=== PATIENT | female | born 1965 | race Caucasian/White ===

== ENCOUNTER 2017-12-12 08:13 | Inpatient (IN) | payer MEDICAID ==
[~2017-12-12] VITALS: Ht 172.7 cm; Wt 175.1 kg
[~2017-12-12 08:13] MED LIST: AMOX-362 PO; DICY-42 PO; HYDR12.556 PO; LEVO50TA86 PO; ONDA4TAB97 PO; OXYC-865 PO
--- NOTE | 2017-12-12 08:15 | ER Report ---
History and Physical Time Seen By MD: 08:14 HPI/ROS CHIEF COMPLAINT: Dyspnea HISTORY OF PRESENT ILLNESS:SOB; hx of pneumonia in past, currently not on any anticoagulation; recently also diagnosed as a diabetic; Wears 2 L NC O2 at night. Patient states that her shortness of breath began yesterday. She has been increasing her O2 off throughout the day and has been giving herself nebulizer treatments at home which do help for a short duration but then she feels short of breath again. Patient reports having subjective fevers at home. She states she feels worse than she did when she presented in February 2017 when she was ultimately diagnosed with pneumonia. Patient denies any chest pain or pressure but reports shortness of breath. She denies headache. She denies any abdominal pain. She denies dysuria or flank pain. REVIEW OF SYSTEMS: Constitutional: Subjective fevers no chills Eyes: No discharge. ENT: Reports sore throat Cardiovascular: No chest pain, no palpitations. Respiratory: Reports a dry cough and shortness of breath Gastrointestinal: No abdominal pain, no vomiting. Genitourinary: No hematuria. Musculoskeletal: No back pain. Skin: No rashes. Neurological: No headache. Allergies: Coded Allergies: No Known Drug Allergies (Unverified , 12/12/17) Home Meds Reported Medications Aspirin (ASPIRIN) 81 Mg Tab.chew, 81 MG PO QDAY, TAB.CHEW 12/12/17 Levothyroxine Sodium (LEVOTHYROXINE SODIUM) 75 Mcg Tablet, 75 MCG PO QDAY, TAB 12/12/17 Metoprolol Tartrate (METOPROLOL TARTRATE) 25 Mg Tablet, 2 TAB PO BID, TAB 12/12/17 Metformin Hcl (METFORMIN HCL) 1,000 Mg Tablet, 1 TAB PO BID, TAB 12/12/17 Furosemide (LASIX) 80 Mg Tablet, PO DAILY, TAB 12/12/17 Discontinued Reported Medications Hydrochlorothiazide (HYDROCHLOROTHIAZIDE) 12.5 Mg Capsule, 1 TAB PO QDAY, CAPSULE 02/18/17 Oxycodone Hcl/Acetaminophen (PERCOCET 5-325 MG TABLET) 1 Each Tablet, 1 EACH PO Q6H Y for PAIN, TAB 02/18/17 Amoxicillin (AMOXICILLIN) 500 Mg Capsule, 1 CAP PO Q8H, #15 CAPSULE 02/18/17 Levothyroxine Sodium (LEVOTHYROXINE SODIUM) 50 Mcg Tablet, 50 MCG PO QDAY, TAB 02/18/17 Discontinued Scripts Dicyclomine Hcl (BENTYL) 10 Mg Capsule, 20 MG PO QID, #20 CAPSULE 0 Refills Prov:NICCI ZHOU MD 02/18/17 Ondansetron Hcl (ZOFRAN) 4 Mg Tablet, 4 MG PO Q8H for Nausea, #15 TAB 0 Refills Prov:NICCI ZHOU MD 02/18/17 Past Medical/Surgical History Hx of PE 02/2017 Hx Substance Use Disorder: No Constitutional Vital Sign - Last 24 Hours 12/12/17 12/12/17 12/12/17 12/12/17 08:27 08:36 09:00 09:54 Temp 99.5 Pulse 107 101 105 Resp 24 22 20 B/P (MAP) 146/89 Pulse Ox 48 O2 Delivery Room Air O2 Flow Rate 6.0 12/12/17 09:54 Pulse Ox 90 O2 Delivery Nasal Cannula O2 Flow Rate 5.0 Physical Exam General/Constitutional: Patient is awake, alert, some peripheral cyanosis, initial O2 saturation on room air was 48% High BMI Head: Normocephalic and atraumatic. Eyes: Conjunctival clear, Pupils are equal and reactive to light. Extraocular muscles are intact and symmetrical. Sclera are clear and anicteric. Ears:External canals are clear. Tympanic membranes are clear with normal landmarks and light reflex. Nares: No rhinorrhea or bleeding. Turbinates are pink and moist. Oropharyngeal: Uterus membranes are moist. There is pharyngeal erythema without exudate. Neck: Supple, no adenopathy. Cardiovascular: Heart is tachycardic but regular rhythm Pulmonary: Lungs are noted for diminished breath sounds bilaterally with wheezing with cough. Abdomen: Soft, protuberant nontender, no guarding or peritoneal signs. Extremities: No gross deformities, No peripheral cyanosis. Able to move all 4 extremities. Neuro: Alert and oriented X3, Skin: Patient initially with peripheral cyanosis which responded to O2 therapy. No rashes noted Medical Decision Making Data Points Result Diagram: 12/12/17 0835 12/12/17 0835 Laboratory Hematology Test 12/12/17 08:35 Red Blood Count 5.13 M/uL (4.17-5.56) Mean Corpuscular Volume 90.0 fL (80.0-96.0) Mean Corpuscular Hemoglobin 29.2 pg (26.0-33.0) Mean Corpuscular Hemoglobin Concent 32.4 g/dL (32.0-36.0) Red Cell Distribution Width 17.2 % (11.5-14.5) Mean Platelet Volume 7.1 fL (7.2-11.1) Neutrophils (%) (Auto) 87.3 % (39.4-72.5) Lymphocytes (%) (Auto) 3.4 % (17.6-49.6) Monocytes (%) (Auto) 8.1 % (4.1-12.4) Eosinophils (%) (Auto) 0.7 % (0.4-6.7) Basophils (%) (Auto) 0.5 % (0.3-1.4) Nucleated RBC Relative Count (auto) 0.1 /100WBC Neutrophils # (Auto) 16.8 K/uL (2.0-7.4) Lymphocytes # (Auto) 0.6 K/uL (1.3-3.6) Monocytes # (Auto) 1.6 K/uL (0.3-1.0) Eosinophils # (Auto) 0.1 K/uL (0.0-0.5) Basophils # (Auto) 0.1 K/uL (0.0-0.1) Nucleated RBC Absolute Count (auto) 0.01 K/uL Peripheral Blood Smear Yes Y/N Prothrombin Time 13.9 seconds (12.0-14.4) Prothromb Time International Ratio 1.06 Activated Partial Thromboplast Time 27 seconds (23-35) Sodium Level 142 mmol/L (137-145) Potassium Level 3.7 mmol/L (3.5-5.0) Chloride Level 98 mmol/L (98-107) Carbon Dioxide Level 31 mmol/L (22-31) Blood Urea Nitrogen 11 mg/dl (7-18) Creatinine 0.80 mg/dl (0.52-1.04) Glomerular Filtration Rate Calc > 60.0 Random Glucose 142 mg/dl (75-110) Lactate 1.7 mmol/L (0.7-2.1) Calcium Level 8.7 mg/dl (8.4-10.2) Total Bilirubin 0.6 mg/dl (0.2-1.3) Aspartate Amino Transf (AST/SGOT) 19 U/L (0-35) Alanine Aminotransferase (ALT/SGPT) 19 U/L (0-56) Alkaline Phosphatase 135 U/L (0-126) Troponin I < 0.012 ng/ml B-Type Natriuretic Peptide 538 pg/ml (0-100) Total Protein 7.5 gm/dl (6.3-8.2) Albumin 3.7 g/dl (3.5-5.0) Thyroid Stimulating Hormone (TSH) 4.41 uIU/ml (0.46-4.68) Chemistry Test 12/12/17 08:35 White Blood Count 19.2 k/uL (4.5-11.0) Red Blood Count 5.13 M/uL (4.17-5.56) Hemoglobin 15.0 g/dL (12.0-16.0) Hematocrit 46.2 % (34.0-47.0) Mean Corpuscular Volume 90.0 fL (80.0-96.0) Mean Corpuscular Hemoglobin 29.2 pg (26.0-33.0) Mean Corpuscular Hemoglobin Concent 32.4 g/dL (32.0-36.0) Red Cell Distribution Width 17.2 % (11.5-14.5) Platelet Count 353 K/uL (150-450) Mean Platelet Volume 7.1 fL (7.2-11.1) Neutrophils (%) (Auto) 87.3 % (39.4-72.5) Lymphocytes (%) (Auto) 3.4 % (17.6-49.6) Monocytes (%) (Auto) 8.1 % (4.1-12.4) Eosinophils (%) (Auto) 0.7 % (0.4-6.7) Basophils (%) (Auto) 0.5 % (0.3-1.4) Nucleated RBC Relative Count (auto) 0.1 /100WBC Neutrophils # (Auto) 16.8 K/uL (2.0-7.4) Lymphocytes # (Auto) 0.6 K/uL (1.3-3.6) Monocytes # (Auto) 1.6 K/uL (0.3-1.0) Eosinophils # (Auto) 0.1 K/uL (0.0-0.5) Basophils # (Auto) 0.1 K/uL (0.0-0.1) Nucleated RBC Absolute Count (auto) 0.01 K/uL Peripheral Blood Smear Yes Y/N Prothrombin Time 13.9 seconds (12.0-14.4) Prothromb Time International Ratio 1.06 Activated Partial Thromboplast Time 27 seconds (23-35) Glomerular Filtration Rate Calc > 60.0 Lactate 1.7 mmol/L (0.7-2.1) Calcium Level 8.7 mg/dl (8.4-10.2) Total Bilirubin 0.6 mg/dl (0.2-1.3) Aspartate Amino Transf (AST/SGOT) 19 U/L (0-35) Alanine Aminotransferase (ALT/SGPT) 19 U/L (0-56) Alkaline Phosphatase 135 U/L (0-126) Troponin I < 0.012 ng/ml B-Type Natriuretic Peptide 538 pg/ml (0-100) Total Protein 7.5 gm/dl (6.3-8.2) Albumin 3.7 g/dl (3.5-5.0) Thyroid Stimulating Hormone (TSH) 4.41 uIU/ml (0.46-4.68) Coagulation Test 12/12/17 08:35 Prothrombin Time 13.9 seconds Prothromb Time International Ratio 1.06 Activated Partial Thromboplast Time 27 seconds Microbiology Microbiology Date/Time Source Procedure Growth Status 12/12/17 09:35 Blood Peripheral Draw Blood Culture - Preliminary NO GROWTH SO FAR, SET LATE. REINCUBATED Resulted 12/12/17 09:22 Blood Peripheral Draw Blood Culture - Preliminary NO GROWTH SO FAR, SET LATE. REINCUBATED Resulted EKG/Imaging EKG Interpretation EKG today shows sinus tachycardia with ventricular rate of 105 bpm. There is a right axis deviation. This was compared to EKG from February 2017 which showed sinus rhythm with a ventricular rate of 75 bpm. Monitor Interpretation: Sinus Tachycardia ED Course/Re-evaluation Clinical Indication for ER IV: IV Access ED Course 12/12/2017 8:47:10 am After history and physical exam was performed differential diagnosis was formulated which includes but is not limited to acute coronary syndrome, acute myocardial infarction, pulmonary embolism, pneumonia, pneumonitis. Plan at this time will be to perform cardiac workup along with CT angiogram of the chest to rule out pulmonary embolism. We will give the patient a breathing treatment for bronchospasm. Patient will most likely require admission. 12/12/2017 9:48:26 am patient received hour-long breathing treatment. Patient subjectively feels no significant improvement. Reevaluation of lung exam still reveals decreased breath sounds bilaterally with scattered wheezes with cough. No objective improvement noted Decision to Disposition Date: Dec 12, 2017 Decision to Disposition Time: 11:08 Depart Departure Latest Vital Signs Vital Signs Date Time Temp Pulse Resp B/P (MAP) Pulse Ox O2 Delivery O2 Flow Rate FiO2 12/12/17 09:54 90 Nasal Cannula 5.0 12/12/17 09:54 105 20 12/12/17 08:27 99.5 146/89 Impression: Primary Impression: Pneumonia Condition: Improved Disposition: Admitted from ER (to dr ingram) Problem Qualifiers Primary Impression: Pneumonia Pneumonia type: due to unspecified organism Laterality: bilateral Lung location: unspecified part of lung Qualified Codes: J18.9 - Pneumonia, unspecified organism NICCI ZHOU MD Dec 12, 2017 08:15
[2017-12-12] MEDS ORDERED: ASPIRIN 81 MG CHEW PO ONE (08:20)
[2017-12-12] MEDS ORDERED: METF-420 PO (08:25)
[2017-12-12] MEDS ORDERED: FURO80TA10 PO (08:25)
[2017-12-12] MEDS ORDERED: METO25TA93 PO (08:26)
[2017-12-12] MEDS ORDERED: LEVO75TA73 PO (08:27)
[2017-12-12] MEDS ORDERED: ASPI81TA94 PO (08:33)
[2017-12-12] MEDS ORDERED: IPRATROPIUM 0.5MG/2.5ML NEB NEB ONE (08:40)
[2017-12-12] MEDS ORDERED: ALBUTEROL 2.5 MG/0.5ML ER ONLY NEB ONE (08:40)
[2017-12-12 08:48] LABS: PLATELET COUNT, AUTOMATED 353 K/uL (150-450)
[2017-12-12 08:53] LABS: INR 1.06
[2017-12-12] MEDS ORDERED: IOPAMIDOL 76% 75 ML INFUS BTL 0 ML ONE (09:13)
--- NOTE | 2017-12-12 09:18 | EKG ---
FACILITY: [facility] PATIENT NAME: SHAYNA LANGLEY : [id number] MR: [id number] V: [id number] EXAM DATE: ORDERING PHYSICIAN: NICCI ZHOU TECHNOLOGIST: Test Reason : Blood Pressure : / mmHG Vent. Rate : 105 BPM Atrial Rate : 105 BPM P-R Int : 152 ms QRS Dur : 080 ms QT Int : 346 ms P-R-T Axes : 073 122 074 degrees QTc Int : 457 ms Sinus tachycardia Right axis deviation Abnormal ECG When compared with ECG of 21-FEB-2017 08:40, Nonspecific T wave abnormality no longer evident in Anterior leads Confirmed by ERIN ESTEVEZ ([id number]) on 12/12/2017 12:31:27 PM Referred By: Confirmed By:ERIN ESTEVEZ
[2017-12-12] MEDS ORDERED: IOPAMIDOL 76% 100 ML INFUS BTL 100 ML ONE (10:15)
--- NOTE | 2017-12-12 10:37 | RADIOLOGY IMAGING REPORT ---
FACILITY: [facility] [place] PATIENT NAME: Valentina Eduardo : 1965 MR: [id number] V: [id number] EXAM DATE: ORDERING PHYSICIAN: NICCI ZHOU TECHNOLOGIST: Location: [facility] [place] Patient: Valentina Eduardo : 1965 Visit/Account:[id number] Date of Sevice: 12/12/2017 CTA CHEST WW/O CNTR (PULM ANG) HISTORY: hypoxia ADDITIONAL HISTORY: None. TECHNIQUE: CTA chest with intravenous contrast. Axial imaging acquired following administration of IV contrast timed for maximum opacification of the pulmonary arterial vasculature. Slab 3-D MIP jose nstructed images were also created for further evaluation and interpretation. Reconstruction of the [facility] data set includes multiplanar 2-D in the sagittal and coronal planes and 3-D reconstructed yudith nal slab MIP series. 3-D images were created by the technologist. Dose Lowering Technique One of the following dose optimization techniques was utilized in the performance of this exam: Autom ated exposure control; adjustment of the mA and/or kV according to the patient's size; or use of an i terative reconstruction technique. Specific details can be referenced in the facility's radiology C T exam operational policy. The study is limited due to patient's large body habitus. CONTRAST: 75 mL Isovue-370 COMPARISON: CT abdomen pelvis February 18, 2017 FINDINGS: Lungs/pleura: There are multiple patchy nodular areas of airspace consolidation seen throughout the lungs, most prominent in the left lower lobe.. No evidence of pleural effusions. There Is a partial ly calcified 6 mm nodule in the anterior right upper lobe best seen on image 18 of series 5. Heart/vessels: The pulmonary arterial tree is not ideally visualized distally in part related to myers ited contrast bolus into the distal pulmonary arteries and due to the patient's very large body habit us producing numerous artifacts.. No large central pulmonary emboli are identified Mediastinum/lymph nodes: There are several mildly prominent AP window lymph nodes. Stiff Leg Derrick Operator l ymph node measures 1.4 x 1.1 cm. There are prominent right hilar lymph nodes. A malt liquors sales representative lymp h node measures 3 x 2.1 cm. Several mildly prominent or tracheal lymph nodes a malt liquors sales representative lymph node measures 1.8 x 1.3 cm Visualized upper abdomen: Negative. Bones/soft tissues: Morbid obesity Additional findings: None IMPRESSION: There are multiple patchy nodular areas of airspace consolidation throughout the lungs, most prominen t in the left lower lobe. Appearance is suggestive of multifocal pneumonia although continued follow -up recommended to assure clearing. 6 mm calcified nodule right upper lobe No evidence of large central pulmonary arterial emboli however the peripheral pulmonary arterial tree is not ideally visualized due to a combination of patient's very large body habitus and limited cont rast bolus into the distal pulmonary arteries.. Mildly prominent right hilar mediastinal adenopathy. This could be reactive although again short-ter m interval follow-up recommended. Report Dictated By: Joseline Rasmussen MD at 12/12/2017 10:19 AM Report E-Signed By: Joseline Rasmussen MD at 12/12/2017 10:32 AM WSN:[email or web address]
[2017-12-12] MEDS ORDERED: cefTRIAXone 1 GM VIAL IVP ONE (10:45)
[2017-12-12] MEDS ORDERED: AZITHROMYCIN(*) 500 MG 500 MG in NS(*) 0.9% 250 ML BAG 250 ML IVPB ONE (10:45)
[2017-12-12] MEDS ORDERED: AZITHROMYCIN(*) 500 MG 500 MG ONE (10:53)
[2017-12-12 11:51] VITALS: BP 129/81
--- NOTE | 2017-12-12 12:07 | History & Physical ---
History of Present Illness Chief Complaint Shortness of breath and cough History of Present Illness She presented with shortness of breath and cough which began yesterday. She did have elevated WBC and CTA done showed pneumonia throughout. She was started on Rocephin and Azithromycin in the emergency department. She normally wears 2L oxygen at night, but now has required 8L this morning. She has a past medical history of hypertension, hypothyroidism, and diabetes. History Problems: (1) Diabetes Status: Chronic (2) Hypertension Status: Chronic (3) Hypothyroidism Status: Chronic Home Meds Reported Medications Furosemide (FUROSEMIDE) 40 Mg Tablet, 1 TAB PO DAILY, TAB 12/12/17 Aspirin (ASPIRIN) 81 Mg Tab.chew, 81 MG PO QDAY, TAB.CHEW 12/12/17 Levothyroxine Sodium (LEVOTHYROXINE SODIUM) 75 Mcg Tablet, 75 MCG PO QDAY, TAB 12/12/17 Metoprolol Tartrate (METOPROLOL TARTRATE) 25 Mg Tablet, 1 TAB PO BID, TAB 12/12/17 Metformin Hcl (METFORMIN HCL) 1,000 Mg Tablet, 1 TAB PO BID, TAB 12/12/17 Discontinued Reported Medications Furosemide (LASIX) 80 Mg Tablet, PO DAILY, TAB 12/12/17 Hydrochlorothiazide (HYDROCHLOROTHIAZIDE) 12.5 Mg Capsule, 1 TAB PO QDAY, CAPSULE 02/18/17 Oxycodone Hcl/Acetaminophen (PERCOCET 5-325 MG TABLET) 1 Each Tablet, 1 EACH PO Q6H Y for PAIN, TAB 02/18/17 Amoxicillin (AMOXICILLIN) 500 Mg Capsule, 1 CAP PO Q8H, #15 CAPSULE 02/18/17 Levothyroxine Sodium (LEVOTHYROXINE SODIUM) 50 Mcg Tablet, 50 MCG PO QDAY, TAB 02/18/17 Discontinued Scripts Dicyclomine Hcl (BENTYL) 10 Mg Capsule, 20 MG PO QID, #20 CAPSULE 0 Refills Prov:NICCI ZHOU MD 02/18/17 Ondansetron Hcl (ZOFRAN) 4 Mg Tablet, 4 MG PO Q8H for Nausea, #15 TAB 0 Refills Prov:NICCI ZHOU MD 02/18/17 Allergies: Coded Allergies: No Known Drug Allergies (Unverified , 12/12/17) Patient History: FH: HTN (hypertension) FATHER, MOTHER, FH: dementia MOTHER, FH: diabetes mellitus MOTHER, High cholesterol BROTHER OR SISTER Hx Substance Use Disorder: No Review of Systems All Systems Reviewed/Normal: Yes, Except as Noted Respiratory: Shortness of Breath, Cough, Wheezing Gastrointestinal: Nausea, Vomiting Exam Vital Signs Vital Signs Date Time Temp Pulse Resp B/P (MAP) Pulse Ox O2 Delivery O2 Flow Rate FiO2 12/12/17 11:51 98.6 88 22 129/81 (97) 96 Nasal Cannula 6.0 General Appearance: Alert, Awake, No Acute Distress, Afebrile Neuro: No Gross deficits Cardiovascular: Regular Rate and Rhythm Respiratory: No Respiratory Distress, Other (diminished throughout, upper airway expiratory wheezes noted) GI: Abd Soft and Non-Tender Extremities: Edema (+2 pitting edema to lower extrmeities ) Psych: Alert & Oriented X3, Appropriate Mood & Affect Medical Decision Making Data Points Result Diagram: 12/12/17 0835 12/12/17 0835 blood cultures drawn in ER Assessment and Plan Problems: (1) Pneumonia Status: Acute Assessment & Plan: She was admitted with elevated WBC and multifocal pneumonia throughout bilateral lung parrish. She will be placed on Azithromycin and Rocephin. She will be given nebulizers, oxygen and flutter therapy. Blood cultures were drawn today in the ER. (2) Diabetes Status: Chronic Assessment & Plan: She is on chronic treatment with Metformin. She had contrast for CTA today, so we will hold Metformin. She will be given Insulin SS #2 and will get AC and HS blood sugars. (3) Hypothyroidism Status: Chronic Assessment & Plan: She is on chronic treatment with Levothyroxine. (4) Hypertension Status: Chronic Assessment & Plan: She is on chronic treatment with Lasix and Metoprolol. Venous Thromboembolism Antithrombotics Is Pt On Any Antithrombotics?: Yes Exam Sepsis Risk: Sepsis Risk Problem Qualifiers (1) Pneumonia: Pneumonia type: due to unspecified organism Laterality: bilateral Lung location: unspecified part of lung Qualified Codes: J18.9 - Pneumonia, unspecified organism DEREK MONTES SCIENTIFIC SOFTWARE DEVELOPER Dec 12, 2017 12:07
[2017-12-12] MEDS ORDERED: FURO-47 PO (12:38)
[2017-12-12] MEDS: ACETAMINOPHEN 500 MG TAB PO PRN ×2 (13:25→21:34)
[2017-12-12] MEDS: ALBUTEROL 2.5 MG/3 ML NEB NEB PRN ×4 (13:31→23:37)
[2017-12-12 14:58] VITALS: BP 117/75
[2017-12-12 20:04] VITALS: BP 130/82
[2017-12-12] MEDS: metFORMIN HCL 500 MG TAB PO SCH ×2 (21:00→21:08)
[2017-12-12] MEDS: METOPROLOL TART 50 MG TAB PO SCH (21:07)
[2017-12-12 23:12] VITALS: BP 127/82
[2017-12-13] MEDS: ALBUTEROL 2.5 MG/3 ML NEB NEB PRN ×2 (02:55→07:18)
[2017-12-13 03:31] VITALS: BP 104/63
[2017-12-13 06:07] LABS: PLATELET COUNT, AUTOMATED 322 K/uL (150-450)
[2017-12-13] MEDS: LEVOTHYROXINE SOD 0.075 MG TAB PO SCH (06:28)
[2017-12-13 07:03] VITALS: BP 124/66
[2017-12-13] MEDS ORDERED: ALBUTEROL 2.5 MG/3 ML NEB NEB PRN (07:40)
[2017-12-13] MEDS: ACETAMINOPHEN 500 MG TAB PO PRN ×2 (07:46→22:23)
[2017-12-13] MEDS: metFORMIN HCL 500 MG TAB PO SCH (09:00)
[2017-12-13] MEDS ORDERED: NS(*) 0.9% 250 ML BAG 250 ML ONE (09:14)
[2017-12-13] MEDS: METOPROLOL TART 50 MG TAB PO SCH ×2 (09:27→21:06)
[2017-12-13] MEDS: FUROSEMIDE 40 MG TAB PO SCH (09:27)
[2017-12-13] MEDS: AZITHROMYCIN(*) 500 MG 500 MG in NS(*) 0.9% 250 ML BAG 250 ML IVPB SCH (09:28)
[2017-12-13] MEDS: methylPREDNIS SUCC 125 MG/2ML IVP SCH ×2 (09:28→16:24)
[2017-12-13] MEDS: ENOXAPARIN 40 MG/0.4ML SYR SC SCH (09:30)
[2017-12-13 09:41] VITALS: Ht 172.7 cm; Wt 175.1 kg
[2017-12-13] MEDS: ALBUTEROL 2.5 MG/3 ML NEB NEB SCH ×4 (10:29→21:12)
[2017-12-13] MEDS: cefTRIAXone(*) 2 GM VIAL 2 GM in NS(*) 0.9% 100 ML ADDVANT BAG 100 ML IVPB SCH (10:49)
--- NOTE | 2017-12-13 12:34 | Hospitalist Progress Note ---
Subjective Progress Notes Subjective She states she is feeling a little better than she did yesterday. She is still requiring 10L of oxygen. Patient Complains of: Cardiovascular: No: Chest Pain Respiratory: Cough, Shortness of Breath, Wheezing Physical Exam Vital Signs Date Time Temp Pulse Resp B/P (MAP) Pulse Ox O2 Delivery O2 Flow Rate FiO2 12/13/17 11:38 78 12/13/17 10:37 71 20 12/13/17 10:30 High-Flow Nasal Cannula 10.0 12/13/17 07:03 98.4 124/66 (85) 12/13/17 05:40 65.0 Intake and Output 12/14/17 07:00 Intake Total 850 ml Balance 850 ml Intake Oral 500 ml IV Total 350 ml # Voids 1 General Appearance: Alert, Awake, No Acute Distress, Afebrile Neuro: No Gross deficits Cardiovascular: Regular Rate and Rhythm Respiratory: No Respiratory Distress, Other (expiratory wheezes throughout) Extremities: Edema (+2 pitting edema) Psych: Alert & Oriented X3, Appropriate Mood & Affect Result Diagram: 12/13/17 0535 12/13/17 0535 Monitor Interpretation: Sinus Tachycardia Assessment and Plan Problems: (1) Pneumonia Status: Acute Assessment & Plan: She was admitted with elevated WBC and multifocal pneumonia throughout bilateral lung parrish. She will be placed on Azithromycin and Rocephin. She will be given nebulizers, oxygen and flutter therapy. She was placed on BIPAP last night. Blood cultures were drawn in the ER 12/12 and show no growth at this time. She will get echocardiogram done today to rule out heart failure, since she does have pitting edema to to lower extremities also. (2) Diabetes Status: Chronic Assessment & Plan: She is on chronic treatment with Metformin. She had contrast for CTA 12/12, so we will hold Metformin. She will be given Insulin SS # 2 and will get AC and HS blood sugars. (3) Hypothyroidism Status: Chronic Assessment & Plan: She is on chronic treatment with Levothyroxine. (4) Hypertension Status: Chronic Assessment & Plan: She is on chronic treatment with Lasix and Metoprolol. She does not take Potassium supplement with Lasix. She states she usually increases potassium in her diet. Will continue to monitor Potassium. Exam Sepsis Risk: No Definite Risk Problem Qualifiers (1) Pneumonia: Pneumonia type: due to unspecified organism Laterality: bilateral Lung location: unspecified part of lung Qualified Codes: J18.9 - Pneumonia, unspecified organism DEREK MONTES GAUGE INSPECTOR Dec 13, 2017 12:34
--- NOTE | 2017-12-13 13:22 | Medical Nutrition Therapy ---
Nutrition Anthropometrics Height (Inches): 68.00 Height (Calculated Centimeters: 172.776727 Weight (Pounds): 386 Weight (Calculated Kilograms): 175.087 BMI Calculated: 58.68 Tone Nutrition Score: Adequate Tone Nutrition Risk Score: 20 Dietary Referral Nutrition Risk Factors: Nutrition Risk Comment: Physical Findings Physical Appearance: Morbidly Obese 40+ Skin Appearance Skin Appearance: Edema Edema Location Modifier: Both Edema Location: Lower Extremity Type of Edema: Degree of Edema: 2+ Gastrointestinal Symptoms GI Symtoms: Appetite Changes Tube Present: Bowel Sounds: Recent Bowel Pattern: Stool Characteristics: Nutrition/Food History Good Breakfast: banana with yogurt Lunch: vegetables Dinner: some protein and vegetables Nutritional Diagnosis Nutritional Risk Acuity 3: Morbid Obesity Nutritional Risk Acuity 4: Good Appetite Past Medical History: T2DM, HTN, hypothyroidism Nutritional Acuity: 3-Mild Energy Requirement: 2626 (kcal/da (15 kcal/kg)) Protein Requirement: 64 (g/day (1.0 g/kg of IBW)) Fluid Requirement: 3500 (mL/day (20 mL/kg)) Diet Type: Diabetic Nutrition Intervention: Cont diet as ordered, Encourage intake Drug: Diuretics Optional Order Time?: No Nutritional Education Nutrition Education Topic: Diabetic Nutrition Learning Readiness: Interested Teaching Methods: Discussion, Handout Response to Teaching: Verbalize understanding Teaching Recipient: Patient Nutrition Counseling: Picker Tender provided pt with diabetic nutrition therapy. Picker Tender reviewed with pt which foods have carbohydrates and which foods do not contain carbohydrates. Picker Tender reviewed typical day and meals with pt, identifying which foods within the day contain protein, fats and carbohydrates. Picker Tender encouraged pt to consume protein more frequently with carbohydrates to slow absorption and digestion of carbs. Pt reported understanding and could recall foods that contain carbohydrates and foods that do not contain carbohydrates. Nutrition Monitoring & Eval Nutrition Goals: Eat 50-100% Meal Nutrition Follow-Up: Good Intake RD Patient Assessment Time: [address] Assessment Type: RD Assessment Patient Nutrition Acuity: 3-Mild Follow Up Date: December 18, 2017 Nutritional Comment: 12/13 Pt admitted for pneumonia. Pt on a diabetic diet order and has consumed 100% x 2 meals since admit. Pt has no abnormal nutritionally relevant labs at this time. Picker Tender provided pt with Diabetic diet education. Pt reported verbalized understainding. Pt reports that she has recieved some nutrition diet education in the past and is preparing for weight loss surgery in May. Monitor intake and progress. KIKI CROWLEY Dec 13, 2017 12:55
[2017-12-13 15:44] VITALS: BP 129/88
[2017-12-13] MEDS: INSULIN HUM LISPRO 100 UN/ML 3 ML VIAL SUBQ PRN ×2 (16:25→21:07)
[2017-12-13 19:14] VITALS: BP 128/69
[2017-12-14 00:12] VITALS: BP 117/70
[2017-12-14] MEDS: methylPREDNIS SUCC 125 MG/2ML IVP SCH ×3 (00:25→16:13)
[2017-12-14] MEDS: ALBUTEROL 2.5 MG/3 ML NEB NEB SCH ×6 (01:09→21:03)
[2017-12-14 03:25] VITALS: BP 123/82
[2017-12-14] MEDS: LEVOTHYROXINE SOD 0.075 MG TAB PO SCH (05:39)
[2017-12-14 07:05] VITALS: BP 124/71
[2017-12-14 07:12] LABS: PLATELET COUNT, AUTOMATED 369 K/uL (150-450)
[2017-12-14] MEDS: METOPROLOL TART 50 MG TAB PO SCH ×2 (09:28→20:58)
[2017-12-14] MEDS: FUROSEMIDE 40 MG TAB PO SCH (09:28)
[2017-12-14] MEDS: AZITHROMYCIN(*) 500 MG 500 MG in NS(*) 0.9% 250 ML BAG 250 ML IVPB SCH (09:29)
[2017-12-14] MEDS: ENOXAPARIN 40 MG/0.4ML SYR SC SCH (09:32)
--- NOTE | 2017-12-14 10:23 | Hospitalist Progress Note ---
Subjective Progress Notes Subjective She reports minimal improvements. No fever. Physical Exam Vital Signs Date Time Temp Pulse Resp B/P (MAP) Pulse Ox O2 Delivery O2 Flow Rate FiO2 12/14/17 09:46 88 20 12/14/17 09:40 92 High-Flow Nasal Cannula 8.0 12/14/17 03:25 98.2 123/82 (96) 12/14/17 01:11 65.0 General Appearance: Alert, Awake Cardiovascular: Regular Rate and Rhythm (distant tones) Respiratory: Other (bilateral expiratory wheezes) GI: Soft and Non-Tender Extremities: Warm, Perfused, Edema Psych: Alert & Oriented X3 Result Diagram: 12/14/1752112/14/17521 Assessment and Plan Problems: (1) Pneumonia Status: Acute Assessment & Plan: She was admitted with elevated WBC and multifocal pneumonia bilaterally. She was placed on IV Azithromycin and Rocephin. She was also started on IV steroids. She will continue nebulizers, oxygen and flutter therapy. Blood cultures have shown no growth. Echocardiogram done yesterday still pending final report, but preliminary report is preserved EF. (2) Diabetes Status: Chronic Assessment & Plan: She is on chronic treatment with Metformin. She had contrast for CT pulmonary angiogram 12/12, so we will continue to hold Metformin until tomorrow AM. Continue ADA diet, monitor glucoses, and SSI as needed. (3) Hypothyroidism Status: Chronic Assessment & Plan: She is on chronic treatment with Levothyroxine. (4) Hypertension Status: Chronic Assessment & Plan: She is on chronic treatment with Lasix and Metoprolol. May need to consider stopping metoprolol if wheezing does not improve. Exam Sepsis Risk: No Definite Risk Problem Qualifiers (1) Pneumonia: Pneumonia type: due to unspecified organism Laterality: bilateral Lung location: unspecified part of lung Qualified Codes: J18.9 - Pneumonia, unspecified organism MELANY PRAKASH MD Dec 14, 2017 10:23
[2017-12-14] MEDS: cefTRIAXone(*) 2 GM VIAL 2 GM in NS(*) 0.9% 100 ML ADDVANT BAG 100 ML IVPB SCH (10:54)
[2017-12-14 10:57] VITALS: BP 123/82
[2017-12-14] MEDS: INSULIN HUM LISPRO 100 UN/ML 3 ML VIAL SUBQ PRN ×2 (12:10→17:10)
[2017-12-14 16:11] VITALS: BP 115/72
[2017-12-14] MEDS: ACETAMINOPHEN 500 MG TAB PO PRN ×2 (16:13→20:58)
[2017-12-14 19:15] VITALS: BP 130/86
[2017-12-15 00:29] VITALS: BP 137/98
[2017-12-15] MEDS: methylPREDNIS SUCC 125 MG/2ML IVP SCH ×3 (00:34→17:23)
[2017-12-15] MEDS: ALBUTEROL 2.5 MG/3 ML NEB NEB SCH ×6 (01:22→21:11)
[2017-12-15] MEDS: ACETAMINOPHEN 500 MG TAB PO PRN ×3 (03:57→20:48)
[2017-12-15] MEDS: LEVOTHYROXINE SOD 0.075 MG TAB PO SCH (05:41)
[2017-12-15 06:42] LABS: PLATELET COUNT, AUTOMATED 366 K/uL (150-450)
[2017-12-15 07:18] VITALS: BP 136/90
[2017-12-15] MEDS: METOPROLOL TART 50 MG TAB PO SCH ×2 (08:36→20:48)
[2017-12-15] MEDS: FUROSEMIDE 40 MG TAB PO SCH (08:36)
[2017-12-15] MEDS: ENOXAPARIN 40 MG/0.4ML SYR SC SCH (08:37)
[2017-12-15] MEDS: INSULIN HUM LISPRO 100 UN/ML 3 ML VIAL SUBQ PRN ×4 (08:38→21:06)
[2017-12-15] MEDS ORDERED: INFLUENZA VIRUS VAC 0.5 ML SYR IM ONLY ONE (09:00)
[2017-12-15] MEDS: AZITHROMYCIN(*) 500 MG 500 MG in NS(*) 0.9% 250 ML BAG 250 ML IVPB SCH (09:45)
--- NOTE | 2017-12-15 10:38 | Hospitalist Progress Note ---
Subjective Progress Notes Subjective This patient was admitted for pneumonia. She had no acute events overnight. Patient Complains of: Cardiovascular: No: Chest Pain Respiratory: No: Shortness of Breath Physical Exam Vital Signs Date Time Temp Pulse Resp B/P (MAP) Pulse Ox O2 Delivery O2 Flow Rate FiO2 12/15/17 09:42 79 22 12/15/17 09:32 92 High-Flow Nasal Cannula 8.0 12/15/17 07:18 136/90 (105) 12/15/17 00:29 98.5 12/14/17 01:11 65.0 Intake and Output 12/16/17 07:00 Intake Total 360 ml Balance 360 ml Intake Oral 360 ml Cardiovascular: Regular Rate and Rhythm Respiratory: Other (Bilateral wheezes.) Extremities: No Edema Integumentary: No Cyanosis Result Diagram: 12/15/17 0538 12/15/17 0538 Item Value Date Time Blood Culture - Preliminary Resulted 12/12/17 0935 Blood Peripheral Draw NO GROWTH AFTER 3 DAYS, REINCUBATED Blood Culture - Preliminary Resulted 12/12/17921 Blood Peripheral Draw NO GROWTH AFTER 3 DAYS, REINCUBATED Assessment and Plan Problems: (1) Pneumonia Status: Acute Assessment & Plan: She was admitted with elevated WBC and multifocal pneumonia bilaterally. She was placed on IV Azithromycin and Rocephin. She was also started on IV steroids. Her cultures have been negative. (2) Diabetes Status: Chronic Assessment & Plan: She is on chronic treatment with Metformin, which has been on hold secondary to IV contrast. It has been restarted today, and she remains on sliding scale level #2. (3) Hypothyroidism Status: Chronic Assessment & Plan: She is on chronic treatment with Levothyroxine. (4) Hypertension Status: Chronic Assessment & Plan: She is on chronic treatment with Lasix and Metoprolol. Exam Sepsis Risk: No Definite Risk Problem Qualifiers (1) Pneumonia: Pneumonia type: due to unspecified organism Laterality: bilateral Lung location: unspecified part of lung Qualified Codes: J18.9 - Pneumonia, unspecified organism (2) Diabetes: Diabetes mellitus type: type 2 ERIN ESTEVEZ DO Dec 15, 2017 10:38
[2017-12-15] MEDS: cefTRIAXone(*) 2 GM VIAL 2 GM in NS(*) 0.9% 100 ML ADDVANT BAG 100 ML IVPB SCH (11:26)
[2017-12-15 16:42] VITALS: BP 138/82
[2017-12-15 19:20] VITALS: BP 124/85
[2017-12-15] MEDS: metFORMIN HCL XR 500 MG TABCR PO SCH ×2 (20:47→20:57)
[2017-12-16] MEDS: methylPREDNIS SUCC 125 MG/2ML IVP SCH ×3 (00:50→17:04)
[2017-12-16] MEDS: ALBUTEROL 2.5 MG/3 ML NEB NEB SCH ×7 (01:07→20:54)
[2017-12-16 05:37] LABS: PLATELET COUNT, AUTOMATED 366 K/uL (150-450)
[2017-12-16] MEDS: LEVOTHYROXINE SOD 0.075 MG TAB PO SCH (05:45)
[2017-12-16] MEDS: ACETAMINOPHEN 500 MG TAB PO PRN ×3 (05:49→21:11)
[2017-12-16 07:56] VITALS: BP 130/88
[2017-12-16] MEDS: INSULIN HUM LISPRO 100 UN/ML 3 ML VIAL SUBQ PRN ×3 (08:12→21:12)
[2017-12-16] MEDS: metFORMIN HCL XR 500 MG TABCR PO SCH ×2 (08:14→17:04)
[2017-12-16] MEDS: ENOXAPARIN 40 MG/0.4ML SYR SC SCH (08:16)
[2017-12-16] MEDS: METOPROLOL TART 50 MG TAB PO SCH ×2 (08:16→21:11)
[2017-12-16] MEDS: FUROSEMIDE 40 MG TAB PO SCH (08:16)
--- NOTE | 2017-12-16 08:49 | Hospitalist Progress Note ---
Subjective Progress Notes Subjective She states she is starting to feel better. Patient Complains of: Respiratory: Cough, Shortness of Breath, Wheezing Physical Exam Vital Signs Date Time Temp Pulse Resp B/P (MAP) Pulse Ox O2 Delivery O2 Flow Rate FiO2 12/16/17 07:56 97.8 79 16 130/88 (102) 92 High-Flow Nasal Cannula 5.5 12/14/17 01:11 65.0 General Appearance: Alert, Awake, No Acute Distress, Afebrile Neuro: No Gross deficits Cardiovascular: Regular Rate and Rhythm Respiratory: No Respiratory Distress, Other (expiratory wheezes) GI: Soft and Non-Tender Psych: Alert & Oriented X3, Appropriate Mood & Affect Result Diagram: 12/16/1752212/16/17522 Assessment and Plan Problems: (1) Pneumonia Status: Acute Assessment & Plan: She was admitted with elevated WBC and multifocal pneumonia bilaterally. She was placed on IV Azithromycin and Rocephin. She was also started on IV steroids. Her cultures have been negative. She is still requiring 6-8L of oxygen. (2) Diabetes Status: Chronic Assessment & Plan: She is on chronic treatment with Metformin, which has been on hold secondary to IV contrast. It has been restarted today, and she remains on sliding scale level #2. (3) Hypothyroidism Status: Chronic Assessment & Plan: She is on chronic treatment with Levothyroxine. (4) Hypertension Status: Chronic Assessment & Plan: She is on chronic treatment with Lasix and Metoprolol. Exam Sepsis Risk: No Definite Risk Problem Qualifiers (1) Pneumonia: Pneumonia type: due to unspecified organism Laterality: bilateral Lung location: unspecified part of lung Qualified Codes: J18.9 - Pneumonia, unspecified organism (2) Diabetes: Diabetes mellitus type: type 2 DEREK MONTES NOTCHER Dec 16, 2017 08:49
[2017-12-16] MEDS: AZITHROMYCIN(*) 500 MG 500 MG in NS(*) 0.9% 250 ML BAG 250 ML IVPB SCH (09:03)
[2017-12-16 10:49] VITALS: BP 134/97
[2017-12-16] MEDS: cefTRIAXone(*) 2 GM VIAL 2 GM in NS(*) 0.9% 100 ML ADDVANT BAG 100 ML IVPB SCH (11:15)
[2017-12-16 15:22] VITALS: BP 134/84
[2017-12-16 19:21] VITALS: BP 139/94
--- NOTE | 2017-12-16 20:37 | RADIOLOGY IMAGING REPORT ---
FACILITY: PATIENT NAME: SHAYNA LANGLEY : [id number] MR: [id number] V: [id number] EXAM DATE: [id number] ORDERING PHYSICIAN: DEREK MONTES TECHNOLOGIST: Tal Dhaliwal EXAMINATION:TWO-DIMENSIONAL ECHOCARDIOGRAPH REASON:SHORTNESS OF BREATH/PNEUMONIA/EDEMA 2D Measurements (normal values in centimeters) LV endLV endRV endVent.LV PostAorticLeftPercent DiastolicSystolicDiastolicSeptumWallRootAtriumShortening (3.5-5.7)(0.9-2.6)(0.6-1.1)(0.6-1.1)(2.0-3.7)(1.9-4.0)(25-35%) [id number]% STROKE VOLUME: 82ml ESTIMATED EJECTION FRACTION: 68% PARASTERNAL LONG AXIS: The view was somewhat techniquely difficult but overall left ventricular systolic function appears to be normal. The left ventricle appears to be enlarged. The right ventricle also appears to be enlarged. No specific wall motion abnormalities are noted. Color examination of the aortic valve was unremarkable. Color examination of the mitral valve revealed a trace of mitral insufficiency present. PARASTERNAL SHORT AXIS: Again overall left ventricular function appears to be normal. There is mild flattening along the interventricular septum. The right ventricle appears to be enlarged. The aortic valve is not seen well and I really cannot tell its configuration. Color examination of the aortic valve was unremarkable. APICAL FOUR AND TWO CHAMBER: Again normal left ventricular systolic function. No specific wall motion abnormalities are noted. Right ventricle appears to be mildly enlarged. Aortic valve area and mitral valve area both measure within normal ranges at 3.4 and 3.6cm2 respectively. Left atrial volume is measured within normal ranges at 25ml/m2. Right atrial volume is also measured within normal ranges at 26ml/m2. The right ventricular function appears to be normal. The TAPSE is measured at 2.0. Trace of mitral insufficiency is noted. A mild amount of tricuspid insufficiency is noted. The tricuspid regurgitation Vmax was measured at 3.41m/sec. SUBCOSTAL VIEW: No pericardial effusion was noted. No atrioseptal or ventriculoseptal defects were noted. Definity contrast was used and no wall motion abnormalities were noted. No thrombi were noted in any of the chambers but the left atrial appendage was not seen. OVERALL IMPRESSION: 1. Normal left ventricular ejection fraction of 68% with normal diastolic function. 2. Mild right ventricular enlargement and mild left atrial enlargement but the left atrial volume and the right atrial volumes are measured within normal ranges. 3. The right ventricle appears to contract normally. 4. The aortic valve was not well seen but no insufficiency was noted. No stenosis was noted. I could not really tell the configuration of the aortic valve. 5. There was a trace of pulmonic insufficiency. 6. A trace of mitral insufficiency. 7. Mild amount of tricuspid insufficiency with estimated right ventricular systolic pressures of 62mm Hg which does include an estimated right atrial pressure of 15mm Hg indicating severe pulmonary hypertension and increased right ventricular systolic pressures. Dictated by: Carole Silva M.D. on 12/13/2017 at 16:51 Transcribed by: HERO on 12/16/2017 at 9:47 Approved by: Carole Silva M.D. on 12/16/2017 at 20:36 [facility]
[2017-12-17] MEDS: methylPREDNIS SUCC 125 MG/2ML IVP SCH (00:35)
[2017-12-17 03:50] VITALS: BP 144/87
[2017-12-17] MEDS: LEVOTHYROXINE SOD 0.075 MG TAB PO SCH (05:45)
[2017-12-17 05:49] LABS: PLATELET COUNT, AUTOMATED 342 K/uL (150-450)
[2017-12-17] MEDS: ALBUTEROL 2.5 MG/3 ML NEB NEB SCH ×5 (05:49→21:56)
[2017-12-17 08:43] VITALS: BP 140/100
[2017-12-17] MEDS: METOPROLOL TART 50 MG TAB PO SCH ×2 (08:45→21:06)
[2017-12-17] MEDS: FUROSEMIDE 40 MG TAB PO SCH (08:45)
[2017-12-17] MEDS: metFORMIN HCL XR 500 MG TABCR PO SCH ×2 (08:46→16:59)
[2017-12-17] MEDS: ENOXAPARIN 40 MG/0.4ML SYR SC SCH (08:46)
[2017-12-17] MEDS: AZITHROMYCIN(*) 500 MG 500 MG in NS(*) 0.9% 250 ML BAG 250 ML IVPB SCH (08:46)
[2017-12-17] MEDS ORDERED: NS(*) 0.9% 250 ML BAG 250 ML ONE (08:54)
--- NOTE | 2017-12-17 10:05 | Hospitalist Progress Note ---
Subjective Progress Notes Subjective She has no complaints this morning. Patient Complains of: Cardiovascular: No: Chest Pain Respiratory: No: Shortness of Breath Physical Exam Vital Signs Date Time Temp Pulse Resp B/P (MAP) Pulse Ox O2 Delivery O2 Flow Rate FiO2 12/17/17 09:12 79 16 12/17/17 09:05 91 High-Flow Nasal Cannula 5.0 12/17/17 08:43 97.7 140/100 (113) 12/14/17 01:11 65.0 General Appearance: Alert, Awake, No Acute Distress, Afebrile Neuro: No Gross deficits Cardiovascular: Regular Rate and Rhythm Respiratory: No Respiratory Distress, Other (diminished, wheezes resolved.) GI: Soft and Non-Tender Psych: Alert & Oriented X3, Appropriate Mood & Affect Result Diagram: 12/17/1751812/17/17518 Assessment and Plan Problems: (1) Pneumonia Status: Acute Assessment & Plan: She was admitted with elevated WBC and multifocal pneumonia bilaterally. She was placed on IV Azithromycin and Rocephin. She was also started on IV steroids. Her cultures have been negative. She is requiring 5L of oxygen. (2) Diabetes Status: Chronic Assessment & Plan: She is on chronic treatment with Metformin. She remains on sliding scale level #2. (3) Hypothyroidism Status: Chronic Assessment & Plan: She is on chronic treatment with Levothyroxine. (4) Hypertension Status: Chronic Assessment & Plan: She is on chronic treatment with Lasix and Metoprolol. Exam Sepsis Risk: No Definite Risk Problem Qualifiers (1) Pneumonia: Pneumonia type: due to unspecified organism Laterality: bilateral Lung location: unspecified part of lung Qualified Codes: J18.9 - Pneumonia, unspecified organism (2) Diabetes: Diabetes mellitus type: type 2 DEREK MONTES TOOL CHECKER December 17, 2017 10:05
[2017-12-17] MEDS: cefTRIAXone(*) 2 GM VIAL 2 GM in NS(*) 0.9% 100 ML ADDVANT BAG 100 ML IVPB SCH (11:00)
[2017-12-17] MEDS ORDERED: methylPREDNIS SUCC 125 MG/2ML IVP ONE (12:00)
[2017-12-17 16:57] VITALS: BP 143/89
[2017-12-17] MEDS: INSULIN HUM LISPRO 100 UN/ML 3 ML VIAL SUBQ PRN ×2 (17:00→21:09)
[2017-12-17 21:03] VITALS: BP 153/101
[2017-12-18] MEDS: ALBUTEROL 2.5 MG/3 ML NEB NEB SCH ×3 (01:15→09:19)
[2017-12-18 04:50] VITALS: BP 125/77
[2017-12-18] MEDS: LEVOTHYROXINE SOD 0.075 MG TAB PO SCH (05:47)
[2017-12-18 07:55] VITALS: BP 132/83
[2017-12-18] MEDS ORDERED: PRED20TA6 PO (08:38)
[2017-12-18] MEDS ORDERED: ALBU2.5V36 INH (08:38)
--- NOTE | 2017-12-18 08:45 | Hospitalist Depart ---
Discharge Summary Reason for Hosp/Final Diag: (1) Pneumonia Status: Acute Hospital Course & Plan: She was admitted with elevated WBC and multifocal pneumonia bilaterally. She was placed on IV Azithromycin and Rocephin. She was also started on IV steroids, which was converted to oral steroids this morning. Her cultures have been negative. She is requiring 3.5L of oxygen at all times. WBC still elevated secondary to steroid use. She will be placed on prednisone taper at home and she will be given albuterol nebulizers, as she has a nebulizer machine at home. (2) Diabetes Status: Chronic Hospital Course & Plan: She is on chronic treatment with Metformin. (3) Hypothyroidism Status: Chronic Hospital Course & Plan: She is on chronic treatment with Levothyroxine. (4) Hypertension Status: Chronic Hospital Course & Plan: She is on chronic treatment with Lasix and Metoprolol. (5) Pulmonary hypertension Status: Chronic Hospital Course & Plan: She was noted to have severe pulmonary hypertension on echocardiogram, she had a preserved EF at 68%. She was encouraged to get sleep study, as she was requiring BIPAP upon admission. She will follow up with her PCP upon returning to [place]. Departure Latest Vital Signs Vital Signs 12/14/17 12/18/17 12/18/17 12/18/17 01:11 04:50 05:35 05:39 Temp 97.9 Pulse 71 Resp 18 B/P (MAP) 125/77 (93) Pulse Ox 92 O2 Delivery High-Flow Nasal Cannula O2 Flow Rate 3.5 FiO2 65.0 Weight (Pounds): 386 Result Diagram: 12/17/1751812/17/17518 Condition: Improved Discharge: Home, Self Care Discharge Instructions Home Meds Active Scripts Albuterol Sulfate 0.083% (ALBUTEROL SULFATE 0.083%) 2.5 Mg/3 Ml Vial.neb, 2.5 MG INH Q4H Y for SHORTNESS OF BREATH, #30 INH Prov:DEREK MONTES [facility] 12/18/17 Prednisone (PREDNISONE) 20 Mg Tablet, 40 MG PO QDAY, #15 TAB 40 mg daily for 3 days, then 20mg daily for 3 days, then 10mg daily for three days Prov:DEREK MONTES [facility] 12/18/17 Reported Medications Furosemide (FUROSEMIDE) 40 Mg Tablet, 1 TAB PO DAILY, TAB 12/12/17 Aspirin (ASPIRIN) 81 Mg Tab.chew, 81 MG PO QDAY, TAB.CHEW 12/12/17 Levothyroxine Sodium (LEVOTHYROXINE SODIUM) 75 Mcg Tablet, 75 MCG PO QDAY, TAB 12/12/17 Metoprolol Tartrate (METOPROLOL TARTRATE) 25 Mg Tablet, 1 TAB PO BID, TAB 12/12/17 Metformin Hcl (METFORMIN HCL) 1,000 Mg Tablet, 1 TAB PO BID, TAB 12/12/17 Discontinued Reported Medications Furosemide (LASIX) 80 Mg Tablet, PO DAILY, TAB 12/12/17 Hydrochlorothiazide (HYDROCHLOROTHIAZIDE) 12.5 Mg Capsule, 1 TAB PO QDAY, CAPSULE 02/18/17 Oxycodone Hcl/Acetaminophen (PERCOCET 5-325 MG TABLET) 1 Each Tablet, 1 EACH PO Q6H Y for PAIN, TAB 02/18/17 Amoxicillin (AMOXICILLIN) 500 Mg Capsule, 1 CAP PO Q8H, #15 CAPSULE 02/18/17 Levothyroxine Sodium (LEVOTHYROXINE SODIUM) 50 Mcg Tablet, 50 MCG PO QDAY, TAB 02/18/17 Discontinued Scripts Dicyclomine Hcl (BENTYL) 10 Mg Capsule, 20 MG PO QID, #20 CAPSULE 0 Refills Prov:NICCI ZHOU MD 02/18/17 Ondansetron Hcl (ZOFRAN) 4 Mg Tablet, 4 MG PO Q8H for Nausea, #15 TAB 0 Refills Prov:NICCI ZHOU MD 02/18/17 Diet: Regular Activity: As Tolerated Venous Thromboembolism Antithrombotics Is Pt On Any Antithrombotics?: Yes Problem Qualifiers (1) Pneumonia: Pneumonia type: due to unspecified organism Laterality: bilateral Lung location: unspecified part of lung Qualified Codes: J18.9 - Pneumonia, unspecified organism (2) Diabetes: Diabetes mellitus type: type 2 DEREK MONTES HOSPICE COORDINATOR December 18, 2017 08:45
[2017-12-18] MEDS: metFORMIN HCL XR 500 MG TABCR PO SCH (08:50)
[2017-12-18] MEDS: ENOXAPARIN 40 MG/0.4ML SYR SC SCH (08:50)
[2017-12-18] MEDS: FUROSEMIDE 40 MG TAB PO SCH (08:50)
[2017-12-18] MEDS: METOPROLOL TART 50 MG TAB PO SCH (08:50)
[2017-12-18] MEDS ORDERED: predniSONE 20 MG TAB PO SCH (09:00)
[2017-12-18] MEDS ORDERED: NICO1PAT45 TD (10:56)
== END 2017-12-18 11:05 | disposition home or self-care (01) | DRG 194 ==
LOC: ER 08:17 → MED 11:04
PROVIDERS: ADMIT Family Medicine; ATTEND Family Medicine
DX: J18.9 Pneumonia, unspecified organism (principal); Z68.43 Body mass index [BMI] 50.0-59.9, adult; E11.9 Type 2 diabetes mellitus without complications; E03.9 Hypothyroidism, unspecified; I10 Essential (primary) hypertension; I27.20 Pulmonary hypertension, unspecified; E66.01 Morbid (severe) obesity due to excess calories; Z79.4 Long term (current) use of insulin; Z99.81 Dependence on supplemental oxygen; Z86.711 Personal history of pulmonary embolism; Z90.49 Acquired absence of other specified parts of digestive tract
CPT/HCPCS: 36415; 36416; 71275; 82040; 82247; 82310; 82374; 82435; 82565; 82947; 82948; 83605; 83880; 84075; 84132; 84155; 84295; 84443; 84450; 84460; 84484; 84520; 85025; 85610; 85730; 87040; 93005; 94644; 94660; 94667; 94668; 99285; C8929; J0456; J0696; J1650; J2930; J7050; J7512; J7611; J7613; J7644; Q9957; Q9967

== ENCOUNTER 2017-12-16 08:01 | Outpatient (RCR) | payer MEDICAID ==
[2017-12-13 09:41] VITALS: BMI 58.7
[~2017-12-16 08:01] MED LIST changes: +ASPI81TA94 PO; +FURO-47 PO; +FURO80TA10 PO; +LEVO75TA73 PO; +METF-421 PO; +METO25TA93 PO
[2017-12-18] MEDS ORDERED: PRED20TA6 PO (08:38)
[2017-12-18] MEDS ORDERED: ALBU2.5V36 INH (08:38)
[2017-12-18] MEDS ORDERED: NICO1PAT45 TD (10:56)
--- NOTE | 2017-12-19 10:59 | Transitional Care Management ---
TCM Discharge Criteria Transitional Care Comment: 12/13 Valentina had a coughing episode and I was unable to talk to her much. She did get a resp tx but when I tried to visit again she was tired. 12/14 Sister visiting at this time but Valentina able to talk-telling me that Yasemin is her main support person and "she is going to work with me on wt loss"I suggested Weight Watchers she stated she couldn't afford that. I then asked her if she had/would try the plate method. I suggested she go back to [place] upon DC d/t her resp problems. She felt she needed her sister suppourt until she was feeling better. She needs to quit smoking and I gave her some information.Stevie staed that hoped to have bariatic surgery in May. We discussed that fact this is not the total answer that she would need to remain on a wt loss diet forever. 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 12/19 Called; left message SOFIA HOLGUIN December 19, 2017 10:59
--- NOTE | 2017-12-19 11:31 | Transitional Care Management ---
Assessment Visit Type: Telephone Visit Spoke with: Valentina Cardiac: WNL Except Cardiac Comment: 12/19 Has HTN and is taking meds Respiratory: WNL Except Respiratory Comment: 12/19 Doesn't sound SOB; states shes wearing O2. Had prn neb last pm but not this am.Review s/s to monitor and report as she has had recurrent pneumonia and is more susecptable. Pharm was out of becky patches but states she hasn't smoked since return home. Has used chantix in the past. Must be smoke free 2 mos prior to wt reduction surgery GI Comment: 12/19 No NVD after atb. Reminded of ADA diet with low carbs and example meals from [facility]. Advised that increased appetite may be from prednisone. Enc to remember her "free" foods and drink lots of liquid (will help thin secretions also). Cheks BS 2or more times a day. Musculoskeletal, Exercise: WNL Except Musculoskeletal, Excercise Com: 12/19 hasn't used walker at home but requested it when amb in hospital. enc to increase act slowly but consistently Socialization: WNL Socialization Comment: 12/19 staying with sister in [place] for now Scheduled Follow-Up with Provi: No (12/19 states she needs to make appt) Questions for Future PCP Visit: 12/19 review need for more prednisone/atb if not better. have MD review her dc summary she was given (with disc). weigh in. diet review. 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 has prednisone. pharm out of becky patches Disease Management/Concern/Wha: 12/19 review s/s recurrent pneumonia, early recognition and tx Transitional Care Comment: 12/13 Valentina had a coughing episode and I was unable to talk to her much. She did get a resp tx but when I tried to visit again she was tired. 12/14 Sister visiting at this time but Valentina able to talk-telling me that Yasemin is her main support person and "she is going to work with me on wt loss"I suggested Weight Watchers she stated she couldn't afford that. I then asked her if she had/would try the plate method. I suggested she go back to [place] upon DC d/t her resp problems. She felt she needed her sister ashley until she was feeling better. She needs to quit smoking and I gave her some information.Stevie staed that hoped to have bariatic surgery in May. We discussed that fact this is not the total answer that she would need to remain on a wt loss diet forever. 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 5/3 Sounds less SOB without coughing on the phone. Enc to call 1-800 number for quit moking counceling as having resource to talk to helps more people quit. Motivation for health management seems to be geared to getting the surgery done in May. States she has to quit smoking, loose wt to qual. Discouraged that shes been so hungry and might have gained wt. Review steroids may be contributer and enc to pick free and low carb foods and follow diet she was given. Plans to return to [place] soon. SOFIA HOLGUIN December 19, 2017 11:31
--- NOTE | 2017-12-31 12:33 | Transitional Care Management ---
Assessment Cardiac: WNL Except Cardiac Comment: 12/19 Has HTN and is taking meds Respiratory: WNL Except Respiratory Comment: 12/19 Doesn't sound SOB; states shes wearing O2. Had prn neb last pm but not this am.Review s/s to monitor and report as she has had recurrent pneumonia and is more susecptable. Pharm was out of becky patches but states she hasn't smoked since return home. Has used chantix in the past. Must be smoke free 2 mos prior to wt reduction surgery GI Comment: 12/19 No NVD after atb. Reminded of ADA diet with low carbs and example meals from [facility]. Advised that increased appetite may be from prednisone. Enc to remember her "free" foods and drink lots of liquid (will help thin secretions also). Cheks BS 2or more times a day. Musculoskeletal, Exercise: WNL Except Musculoskeletal, Excercise Com: 12/19 hasn't used walker at home but requested it when amb in hospital. enc to increase act slowly but consistently Socialization: WNL Socialization Comment: 12/19 staying with sister in [place] for now Scheduled Follow-Up with Provi: No (12/19 states she needs to make appt) Questions for Future PCP Visit: 12/19 review need for more prednisone/atb if not better. have MD review her dc summary she was given (with disc). weigh in. diet review. 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 has prednisone. pharm out of becky patches Disease Management/Concern/Wha: 12/19 review s/s recurrent pneumonia, early recognition and tx Transitional Care Comment: 12/13 Valentina had a coughing episode and I was unable to talk to her much. She did get a resp tx but when I tried to visit again she was tired. 12/14 Sister visiting at this time but Valentina able to talk-telling me that Yasemin is her main support person and "she is going to work with me on wt 12/27,, unable to contact left messages. 12/31 DC'd from program loss"I suggested Weight Watchers she stated she couldn't afford that. I then asked her if she had/would try the plate method. I suggested she go back to [place] upon DC d/t her resp problems. She felt she needed her sister ashley until she was feeling better. She needs to quit smoking and I gave her some information.Stevie staed that hoped to have bariatic surgery in May. We discussed that fact this is not the total answer that she would need to remain on a wt loss diet forever. 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 5/3 Sounds less SOB without coughing on the phone. Enc to call 1-800 number for quit moking counceling as having resource to talk to helps more people quit. Motivation for health management seems to be geared to getting the surgery done in May. States she has to quit smoking, loose wt to qual. Discouraged that shes been so hungry and might have gained wt. Review steroids may be contributer and enc to pick free and low carb foods and follow diet she was given. Plans to return to [place] soon. GEMMA VILLASENOR December 31, 2017 12:33
== END 2017-12-31 18:00 | disposition home or self-care (01) ==
LOC: TCM 08:01
PROVIDERS: ATTEND Nurse Practitioner
DX: Z02.9 Encounter for administrative examinations, unspecified (principal)